=== PATIENT | female | born 1990 | race Caucasian/White ===

== ENCOUNTER → 2019-10-02 | Outpatient (REF) | payer OTHER ==
[~2019-10-02] MED LIST: DECA4TAB PO; NYST50SS PO; OS-CTAB3 PO; PROT20TA11 PO; SENN1TAB8 PO
== END ==
LOC: M LAB REF 12:00
PROVIDERS: ATTEND Physician Assistant
DX: J02.9 Acute pharyngitis, unspecified (principal); B37.9 Candidiasis, unspecified

== ENCOUNTER 2019-10-05 08:26 | Emergency (ER) | payer OTHER ==
[~2019-10-05] VITALS: Ht 152.4 cm; Wt 63.2 kg
[2019-10-05] MEDS ORDERED: DECA4TAB PO (08:35)
[2019-10-05] MEDS ORDERED: OS-CTAB3 PO (08:35)
[2019-10-05] MEDS ORDERED: PROT20TA11 PO (08:35)
[2019-10-05] MEDS ORDERED: SENN1TAB8 PO (08:35)
[2019-10-05] MEDS ORDERED: NYST50SS PO (08:35)
[2019-10-05] MEDS ORDERED: IBUPROFEN 600 MG TAB PO ONE (09:00)
[2019-10-05 09:23] LABS: BASO # 0.1 10^3/uL (0.0-0.2); BASO % 0.3 % (0.0-1.0); EOS % 0.1 % (0.0-3.0); HEMOGLOBIN 13.3 g/dl (12.0-15.5); LYMPH # 1.7 10^3/uL (1.5-5.0); LYMPH % 9.3 % (24.0-44.0); MEAN CORPUSCULAR HEMOGLOBIN 29.1 pg (27.0-33.0); MEAN CORPUSCULAR HGB CONC 32.4 g/dl (32.0-36.5); MEAN CORPUSCULAR VOLUME 89.7 fl (80.0-96.0); MONO # 0.8 10^3/uL (0.0-0.8); MONO % 4.1 % (0.0-5.0); NEUTROPHILS # 15.3 10^3/uL (1.5-8.5); NEUTROPHILS % 82.4 % (36.0-66.0); PLATELET COUNT, AUTOMATED 289 10^3/uL (150-450); RED BLOOD COUNT 4.57 10^6/uL (4.00-5.40); WHITE BLOOD COUNT 18.6 10^3/uL (4.0-10.0)
[2019-10-05 09:47] LABS: ERYTHROCYTE SEDIMENTATION RATE 6 mm/hr (0-20)
[2019-10-05 11:06] VITALS: BP 126/67
== END 2019-10-05 11:05 | disposition home or self-care (01) ==
LOC: M ED 08:26
DX: B37.0 Candidal stomatitis (principal); Z79.899 Other long term (current) drug therapy; Z86.69 Personal history of other diseases of the nervous system and sense organs; Z98.890 Other specified postprocedural states